=== PATIENT | male | born 1995 | race African-American/Black ===

== ENCOUNTER 2022-12-29 19:45 | Emergency (ER) | payer SELFPAY ==
[~2022-12-29] VITALS: Ht 177.8 cm; Wt 63.0 kg
[2022-12-29 19:59] VITALS: BP 146/92; PULSE 18; RESP 59; TEMP 98.4; O2SAT 100
[2022-12-29 20:56] LABS: HEMATOCRIT. 45.2 % (42.0-52.0); HEMOGLOBIN. 15.4 g/dL (14.0-18.0); MEAN CORPUSCULAR VOLUME 94.2 fL (80.0-94.0); MEAN PLATELET VOLUME 10.4 fl (7.4-10.4); PLATELET 180 x1000/uL (130-400); RED BLOOD CELL COUNT 4.79 mill/uL (4.7-6.1); RED CELL DISTRIBUTION WIDTH 12.8 % (11.6-14.6); WHITE BLOOD COUNT 13.7 x1000/uL (4.5-11.0)
[2022-12-29 20:57] LABS: DIFFERENTIAL COMMENT 1
[2022-12-29 21:02] LABS: CHLORIDE 104 mEq/L (98-107); INDEX HEMOLYSI 1 (1-3); INDEX ICTERIC 1 (1-4); INDEX LIPEMIC 1 (1-3); POTASSIUM 4.5 mEq/L (3.5-5.1); SODIUM 138 mEq/L (136-145)
[2022-12-29 21:11] LABS: ALANINE AMINOTRANSFERASE 23 IU/L (13-61); ASPARTATE AMINOTRANSFERASE 19 IU/L (15-37); BILIRUBIN TOTAL 1.1 mg/dL (0.1-1.0); CALCIUM 9.8 mg/dL (8.5-10.1); CARBON DIOXIDE 23 mEq/L (21-32); CREATININE 1.1 mg/dL (0.6-1.3); GLUCOSE 143 mg/dL (70-105); PROTEIN TOTAL 9.1 g/dL (6.0-8.3); UREA NITROGEN BLOOD 11 mg/dL (7-21)
[2022-12-29] MEDS ORDERED: KETOROLAC 30MG/ML VIAL IV STA (21:13)
[2022-12-29] MEDS ORDERED: SODIUM CHLORIDE 0.9% 1,000 ML IV ONE (21:15)
[2022-12-29 21:30] LABS: PLATELET ESTIMATE NORMAL
[2022-12-30] MEDS ORDERED: METOCLOPRAMIDE HCL 10MG/2ML VIAL IV ONE (00:30)
[2022-12-30] MEDS ORDERED: KETOROLAC 30MG/ML VIAL IV NR (01:00)
== END 2022-12-30 01:53 | disposition home or self-care (01) ==
LOC: ER 19:45
DX: R11.10 Vomiting, unspecified (principal); R10.13 Epigastric pain; F12.10 Cannabis abuse, uncomplicated
CPT/HCPCS: 80053; 83690; 85025; 36415; 99284; 96361; 96374; 96375; J7030; J1885; J2765; Z7610 ×2